=== PATIENT | female | born 1980 | race Hispanic/Latino ===

== ENCOUNTER 2017-12-14 18:36 | Observation (INO) | payer MEDICAID ==
[~2017-12-14] VITALS: Ht 147.3 cm; Wt 52.6 kg
[2017-12-14 19:44] LABS: APPEARANCE,URINE Clear (CLEAR); BILIRUBIN,URINE Small (NEGATIVE); COLOR,URINE Dark Yellow (YELLOW); GLUCOSE, URINE (UA) Negative (NEGATIVE); KETONES,URINE Trace mg/dL (NEGATIVE); LEUKOCYTE ESTERASE ,URINE Trace (NEGATIVE); NITRATE,URINE Negative (NEGATIVE); OCCULT BLOOD,URINE Negative (NEGATIVE); PH,URINE 6.5 (5.0-8.0); PROTEIN,URINE Trace (NEGATIVE)
[2017-12-14 19:59] LABS: RBC,URINE 0-1 /HPF (0-1)
[2017-12-14 20:01] LABS: BACTERIA,URINE Few /HPF (None Seen); MUCUS,URINE Few LPF (None Seen); SQUAMOUS EPITHELIAL CELL,UR Few /HPF (0-2)
[2017-12-19] MEDS ORDERED: PNV1TABL17 PO (15:22)
== END 2017-12-14 20:35 | disposition home or self-care (01) ==
LOC: EDH 18:36 → LDH 19:02
DX: O62.9 Abnormality of forces of labor, unspecified (principal); Z3A.38 38 weeks gestation of pregnancy
CPT/HCPCS: 81001; 99285; G0378 ×2